=== PATIENT | male | born 1975 | race Asian ===

== ENCOUNTER 2021-07-30 17:37 | Emergency (ER) | payer MEDICAID ==
[~2021-07-30] VITALS: Ht 172.7 cm; Wt 79.4 kg
[2021-07-30 17:37] VITALS: BP_SYST 130
--- NOTE | 2021-07-30 17:40 | NUR ---
Patient to ER bed H1 to gown for evaluation. Side rails up.
--- NOTE | 2021-07-30 17:45 | NUR ---
ER at bedside examining patient.
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
[2021-07-30] MEDS ORDERED: IBUP-1969 PO (19:24)
--- NOTE | 2021-07-30 19:26 | NUR ---
Note chelseymani in EDM - 07/30/21 at 2231 by LISA Patient given written and verbal discharge instructions and verbalizes understanding. ER discussed with patient the results and treatment provided. Patient in stable condition. ID arm band removed. Rx of MOTRIN given. Patient educated on pain management and to follow up with PMD. Pain Scale 2. Opportunity for questions provided and answered. Medication side effect fact sheet provided.
[2021-07-30 20:00] VITALS: BP_SYST 148
--- NOTE | 2021-07-30 20:00 | NUR ---
Patient given written and verbal discharge instructions and verbalizes understanding. ER MD discussed with patient the results and treatment provided. Patient in stable condition. ID arm band removed. Rx of MOTRIN given. Patient educated on pain management and to follow up with PMD. Pain Scale 2. Opportunity for questions provided and answered. Medication side effect fact sheet provided.
== END 2021-07-30 20:00 | disposition home or self-care (01) ==
LOC: SED 17:37
DX: S20.219A Contusion of unspecified front wall of thorax, initial encounter (principal); M79.662 Pain in left lower leg; X58.XXXA Exposure to other specified factors, initial encounter; Y93.89 Activity, other specified; Y92.89 Other specified places as the place of occurrence of the external cause; Y99.8 Other external cause status
CPT/HCPCS: 71045; 73590-TC; 99284